=== PATIENT | male | born 1950 | race Caucasian/White ===

== ENCOUNTER 2019-06-21 08:20 | Outpatient (CLI) | payer BC, MEDICARE ==
--- NOTE | 2019-06-21 16:04 | NM ---
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 The patient ingested 130 mg of the potassium io dide orally 1 hour before the imaging and the patient was injected with 5 mCi of I-123 Ioflupane prior to imaging. FINDINGS: Normal "comma shaped" activity noted within the basal ganglia bilaterally, consistent with a normal examination. IMPRESSION: Normal examination.
== END 2019-06-21 08:21 | disposition home or self-care (01) ==
LOC: NM 08:20
PROVIDERS: ATTEND Psychiatry & Neurology Neurology
DX: I66.01 Occlusion and stenosis of right middle cerebral artery (principal)
CPT/HCPCS: 78803; A9584

== ENCOUNTER 2022-11-02 16:01 | Outpatient (CLI) | payer MEDICARE, OTHER | END 2022-11-02 16:02 | disposition home or self-care (01) | LOC: RAD 16:01 | PROVIDERS: ATTEND Psychiatry & Neurology Neurology | DX: I63.9 Cerebral infarction, unspecified (principal); M47.812 Spondylosis without myelopathy or radiculopathy, cervical region | CPT/HCPCS: 72040 ==